=== PATIENT | male | born 1965 | race Caucasian/White ===

== ENCOUNTER → 2018-08-29 09:47 | Outpatient (CLI) | payer BC, SELFPAY ==
--- NOTE | 2018-08-29 09:50 | RAD_ITS ---
STUDY: X-RAY - RIGHT SHOULDER REASON FOR EXAM: Male, 52 years old. Neck and shoulder pain. TECHNIQUE: 4 view(s) of the shoulder. COMPARISON: None. FINDINGS: Normal glenohumeral articulation. Minimal osteophytes inferior aspect of the acromioclavicular joint. Normal acromion. Normal humeral head and visualized proximal humerus. The soft tissue structures are unremarkable. Normal visualized pulmonary apex. RAD/Shoulder min 2 Views IMPRESSION: Mild degenerative changes of the right shoulder. Electronically Signed: Francis Murrieta MD at 2:04 EST , Service support ,
--- NOTE | 2018-08-29 09:51 | RAD_ITS ---
STUDY: X-RAY - CERVICAL SPINE REASON FOR EXAM: Male, 52 years old. Neck and right shoulder pain. TECHNIQUE: 5 view(s) of the cervical spine were obtained. COMPARISON: July 25, 2015. FINDINGS: Normal anterior atlantoaxial articulation. Normal odontoid process. Normal cervical lordosis. Mild loss of vertebral body height at C6 unchanged. Mild disc space narrowing C6-7 and C7-T1. Neural foramina narrowing on the right at C5-6, C6-7 and on the left at C6-7. The soft tissue structures are unremarkable. RAD/Cerv Spine 4 or 5 Views IMPRESSION: Degenerative changes of the lower cervical spine with increased neuroforamina narrowing since the prior study. Electronically Signed: Francis Murrieta MD at 2:03 EST , Service support ,
--- OUTSIDE RECORDS SUMMARY | 2018-10-31 19:52 | XMS RPT_ITS ---
:1965 Author Organization OHIP Care Team Providers Name Role Phone Sarah Garcia DO Attending Unavailable Chantel Rivas MD Referring Unavailable Sarah Garcia DO Consulting Unavailable Suni Witt INTERIOR DESIGNER-C Attending Unavailable Suni Witt Referring Unavailable Chantel Rivas Primary Care Unavailable Suni Witt Attending Unavailable Suni Witt Referring Unavailable Chantel Rivas Primary Care Unavailable PROBLEMS PROBLEMS DATE TYPE CONDITION / CODE ATTENDING STATUS SOURCE 08/29/2018 Unknown M25.511 - Pain in Suni Witt Active [place] right shoulder / INTERIOR DESIGNER-C [facility] M25.511(ICD-10) Hospital Repository 08/29/2018 Unknown M54.2 - Suni Witt Active [place] Cervicalgia / INTERIOR DESIGNER-C [facility] M54.2(ICD-10) Hospital Repository PROCEDURES PROCEDURES No Procedure Records FoundRESULTS RESULTS CERV SPINE 4 OR 5 Observed: 08/29/2018 Status: F [facility] Imaging Services [address] [place] [address] Cerv Spine 4 or 5 Views MR#: [id number] Acct: [id number] Name: RODRICK ESCOBAR R Rep #: [id number] : 1965 M 52 From: Francis Murrieta PCP: Chantel Rivas MD Status: REG CLI Study: Cerv Spine 4 or 5 Views Date of Exam: 08/29/18 Exam# [id number] Ordering Dr: Suni Witt STUDY: X-RAY - CERVICAL SPINE REASON FOR EXAM: Male, 52 years old. Neck and right shoulder pain. TECHNIQUE: 5 view(s) of the cervical spine were obtained. COMPARISON: July 25, 2015. FINDINGS: Normal anterior atlantoaxial articulation. Normal odontoid process. Normal cervical lordosis. Mild loss of vertebral body height at C6 unchanged. Mild disc space narrowing C6-7 and C7-T1. Neural foramina narrowing on the right at C5-6, C6-7 and on the left at C6- 7. The soft tissue structures are unremarkable. RAD/Cerv Spine 4 or 5 Views IMPRESSION: Degenerative changes of the lower cervical spine with increased neuroforamina narrowing since the prior study. Electronically Signed: Francis Murrieta MD at 2:03 EST , Service support , CC: INTERIOR DESIGNERSoco Witt; Chantel Rivas MD Turbo Operator: Signed SHOULDER MIN 2 VIEWS Observed: 08/29/2018 Status: F Source: [place] 9:51 AM [facility] Imaging Services [address] [place] [address] Shoulder min 2 Views MR#: [id number] Acct: [id number] Name: RODRICK ESCOBAR Rep #: [id number] : 1965 M 52 From: Francis Murrieta PCP: Chantel Rivas MD Status: REG CLI Study: Shoulder min 2 Views Date of Exam: 08/29/18 Exam# [id number] Ordering Dr: Suni Witt STUDY: X-RAY - RIGHT SHOULDER REASON FOR EXAM: Male, 52 years old. Neck and shoulder pain. TECHNIQUE: 4 view(s) of the shoulder. COMPARISON: None. FINDINGS: Normal glenohumeral articulation. Minimal osteophytes inferior aspect of the acromioclavicular joint. Normal acromion. Normal humeral head and visualized proximal humerus. The soft tissue structures are unremarkable. Normal visualized pulmonary apex. RAD/Shoulder min 2 Views IMPRESSION: Mild degenerative changes of the right shoulder. Electronically Signed: Francis Murrieta MD at 2:04 EST , Service support , CC: ZANDER Witt; Chantel Rivas MD Turbo Operator: Signed ALLERGIES ALLERGIES No Allergies Records FoundENCOUNTERS ENCOUNTERS ADMIT/DISCHARGE ACCOUNT ADMITTING ENCOUNTER LOCATION SOURCE NUMBER CLASS 08/29/2018 [id number] Ambulatory [facility] ing:HPRAD Repository 08/29/2018 [id number] Ambulatory Building:[facility] Practices Repository 08/29/2018 [id number] Ambulatory [facility] ing:RAD.FUTUR Repository E PAYERS PAYERS ENCOUNTER GUARANTOR PAYER SUBSCRIBER SOURCE 08/29/2018 RODRICK Thomas Primary RODRICK [id number] Insurance:ANTHEMPolic SANDERSDOB: [facility] y [place]: [id number] [id number] Repository [address]Cft: 330 Date:[phone] () [id number], [place] [address]OE: 08/29/2018 Secondary NOT GIVENUNK [place] Insurance:SELF PAY [facility] Number: Effective Repository Date:2018-08-29 08/29/2018 Rodrick R Primary Rodrick R OHIP Practices SandersDOB: Insurance:[place] SandersDOB: Repository BC/BSPolicy Number: [id number] [facility] [id number] 0 [place], [place] Date:[id number] [place], [place] [address]Jml: (330) Name:[facility] [address] [address]Lnt: [address] [place] [address] [place] [phone] (HP) (HP)Tel: [phone]: [phone] 08/29/2018 Secondary Rodrick R OHIP Practices Insurance:[place] SandersDOB: [facility]: [id number] 0 [facility] Date: - [place], [place] [id number]: Name:[facility] Box ~(3 [phone], [place] 30 (HP) [id number]: 08/29/2018 RODRICK R Primary RODRICK R Gloria [id number] Insurance:ANTHEMPolic SANDERSDOB: [place] y Number: [id number], [place] [id number] Repository [address]Dfc: 330) Date:2100-46-04DL [phone] (HP) [id number], [place] [address]HS: 08/29/2018 Secondary NOT GIVENUNK [place] Insurance:SELF PAY [facility] Number: Effective Repository Date:2018-08-29
--- OUTSIDE RECORDS SUMMARY | 2018-10-31 19:52 | XMS RPT_ITS | Continuity of Care Document ---
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 Indication: Neck pain, acute Neck pain, acute : Patient Instructions Indication: Neck pain, acute Urinary frequency : Patient Instructions Indication: Urinary frequency SOB (shortness of breath) : Patient Instructions Indication: SOB (shortness of breath) GERD (gastroesophageal reflux disease) : How to access health information online Indication: GERD (gastroesophageal reflux disease) GERD (gastroesophageal reflux disease) : How to access health information online - Detail Indication: GERD (gastroesophageal reflux disease) GERD (gastroesophageal reflux disease) : Patient Instructions Indication: GERD (gastroesophageal reflux disease) SI joint arthritis : Patient Instructions Indication: SI joint arthritis Encounters Office Visit On: 29-Aug-2018 9:14 Encounter Reason: Shoulder Problem - The injury involved the right shoulder. Note for Shoulder problem: Symptoms started about 1 month ago with right shoulder pain- thinks was playing basketball and injured it or from End: 29-Aug-2018 14:37 [address] door. Right shoulder is very stiff and every day is a nagging pain. No numbness or tingling radiating down arm. Neck pain x 1 day and nothing now. Has tried OTC pain relief and heat an d ice therapy-helps for a little bit and then wears off.Encounter Diagnosis: Nonsmoker, Body mass index 28.0-28.9, adult, Right shoulder injury, Right shoulder pain, Neck pain [facility] Office Visit On: 04-Jun-2016 14:51 Encounter Diagnosis: Encounter for screening for malignant neoplasm of colon (Renamed from Special screening for malignant neoplasms, colon) End: 04-Jun-2016 14:53 [facility] Office Visit On: 20-May-2016 12:52 Encounter Reason: Follow up for chronic medical issues - The patient does not feel well, has good energy level and is sleeping well. Patient has been compliant with instructions. Current medication use: no side effects a End: 20-May-2016 13:51 nd compliant with dosing regimen. Patient sleeps 8 hours per night. Nutrition: balanced diet and supplemental vitamins. The medical issues the patient is following up for include All identified problems below, gastric reflux and high cholesterol. weight :.Encounter Diagnosis: GERD (gastroesophageal reflux disease), Hyperlipidemia, Encounter for screening for malignant neoplasm of prostate (Renamed from Screening for prostate cancer), Encounter for screening for malignant neoplasm of colon (Renamed from Special screening for malignant neoplasms, colon), Body mass index 28.0-28.9, adult, Nonsmoker [facility] Phone Encounter On: 31-Jul-2015 12:49 Encounter Diagnosis: Unspecified Diagnosis End: 31-Jul-2015 12:50 [facility] Phone Encounter On: 31-Jul-2015 10:26 Encounter Diagnosis: Dextroscoliosis End: 31-Jul-2015 10:31 [facility] Office Visit On: 25-Jul-2015 12:36 Encounter Reason: Neck Pain - The injury occurred 1 day(s) ago.Encounter Diagnosis: Neck pain, acute End: 25-Jul-2015 15:11 [facility] Phone Encounter On: 04-Jun-2015 15:03 Encounter Diagnosis: Urinary frequency End: 04-Jun-2015 15:05 [facility] Office Visit On: 03-Jun-2015 16:10 Encounter Reason: Urinary Frequency - Symptoms include urinary frequency and urinary urgency, while symptoms do not include urinary incontinence, dysuria or hematuria. Onset was sudden day(s) ago. The symptoms occur cons End: 03-Jun-2015 22:50 tantly. The patient describes this as improving. Associated symptoms include suprapubic pain, while associated symptoms do not include fever, chills, nausea, vomiting, diarrhea, back pain or flank pain. The patient is not currently being treated for this problem. Note for Urinary frequency: noticed wednesday urgency and frequency - and so this weekend drank a bunch of cranberry juice- was having some s uprapubic pressure - was better today unstil was messing around with gris at work- so stopped and got better- he was doing full thermos of coffee in am not whole day and hasnt since this weekend- didnt d rink alot of water either - started mountain biking more - no abd pain or flank pain- stream may not be as strong and no change in symoptioms at nightEncounter Diagnosis: Urinary Frequency (788.41), Suprapubic pressure [facility] Office Visit On: 13-Dec-2014 11:48 Encounter Reason: Upper Respiratory Infection (URI) - The last clinic visit was 5 day(s) ago. No changes in management were made at the last visit. Symptoms include nasal congestion, runny nose, productive cough and whee End: 13-Dec-2014 12:40 zing. Onset was sudden. The symptoms occur constantly. The patient describes this as moderate in severity and worsening. Symptoms are relieved by non- prescription cold medication. Associated symptoms in clude shortness of breath. Current treatment includes non-prescription cold medication.Encounter Diagnosis: SOB (shortness of breath), Cough, Walking pneumonia, SINUSITIS, ACUTE NOS (461.9), Onchomycosis (110.1) [facility] Office Visit On: 14-Nov-2014 15:21 Encounter Reason: Flu Like Symptoms - The last clinic visit was 1 day(s) ago. Symptoms include body aches, nasal congestion, runny nose, sore throat and dry cough. Onset was sudden 1 day(s) ago. Onset followed exposure a End: 14-Nov-2014 15:44 t home to someone with upper respiratory symptoms (work). The symptoms occur constantly. The episodes occur daily and last for 1 day. The patient describes this as moderate in severity and worsening. Th e patient is not currently being treated for this problem. By report there is good compliance with treatment. Previous presentation included sneezing, nasal congestion, runny nose, sore throat and dry cough.Encounter Diagnosis: Flu-like symptoms [facility] Office Visit On: 07-Aug-2014 15:24 Encounter Reason: Sinusitis/ - The duration of the symptoms are 1 1/2 weeks The course has been worsening. The sinusitis/ has no relieving factors. Associated features include The symptoms have been associated with nasal End: 07-Aug-2014 16:12 discharge/stuffy nose and sinus pain. No previous evaluations were reported.Encounter Diagnosis: Common cold virus, Cough [facility] Office Visit On: 30-Apr-2014 16:42 Encounter Reason: Follow up for chronic medical issues - The patient feels well with no complaints, has good energy level and is sleeping well. Patient has been compliant with instructions. Current medication use: no maykel End: 30-Apr-2014 17:12 e effects, compliant with dosing regimen and considered effective by patient. Patient sleeps 7 hours per night. Impact of disease: emotional impact-mild. Nutrition: balanced diet and supplemental vitami ns. The medical issues the patient is following up for include gastric reflux.Encounter Diagnosis: GERD (530.81), Hyperlipidemia (272.4), Well Male Exam (V70.0), Overweight (278.02), Onchomycosis (110.1) [facility] Office Visit On: 07-Oct-2012 8:09 Encounter Reason: Back Pain - This condition occurred without any known injury. The injury involved the lower back. This occurred 3 day(s) ago. The last clinic visit was 3 day(s) ago. No changes in management were made a End: 07-Oct-2012 8:42 t the last visit. Symptoms include back pain, spasm and stiffness. Symptoms are located in the right lower back. The patient describes the pain as aching. The symptoms occur constantly. The patient desc ribes symptoms as moderate in severity and unchanged. This problem has not been previously treated. Note for Back pain: poor bed at hotel and it flared Encounter Diagnosis: SI joint arthritis (720.2), Stiffness of joint, site (719.50) [facility] Phone Encounter On: 11-Aug-2012 14:44 Encounter Diagnosis: BRONCHITIS NOS (490.) End: 11-Aug-2012 14:46 [facility] Office Visit On: 04-Aug-2012 10:36 Encounter Reason: Flu Like Symptoms - Symptoms include fever, chills, body aches (mild ), postnasal drainage and dry cough, while symptoms do not include runny nose, scratchy throat, sore throat, facial pressure or facia End: 04-Aug-2012 11:50 l pain. Onset was sudden 1 day(s) ago. Onset followed exposure at home to someone with upper respiratory symptoms and exposure to an illness known to be in the community. The symptoms occur constantly. The patient describes this as moderate in severity and worsening. Associated symptoms include fatigue and fever, while associated symptoms do not include ear pain, wheezing, shortness of breath, weaknes s, nausea, vomiting or diarrhea. The patient is not currently being treated for this problem. Risk factors do not include smoking.Encounter Diagnosis: Fever chills (780.60), BRONCHITIS NOS (490.) [facility] Office Visit On: 22-Dec-2011 15:43 Encounter Reason: Follow up for chronic medical issues - The patient feels well with no complaints, has good energy level and is sleeping well. Patient has been compliant with instructions. Current medication use: no maykel End: 22-Dec-2011 16:34 e effects, compliant with dosing regimen and considered effective by patient. Patient sleeps 7 hours per night. Impact of disease: emotional impact-mild. Nutrition: balanced diet and supplemental vitami ns. The medical issues the patient is following up for include gastric reflux.Encounter Diagnosis: GERD (530.81), Hyperlipidemia (272.4), Well Male Exam (V70.0), Overweight (278.02) [facility] Office Visit On: 23-Oct-2010 9:45 Encounter Reason: Cough - The onset of the cough has been sudden and has been occurring in a persistent pattern for 4 days. The course has been constant. The cough is characterized as productive of mucoid sputum. The darron End: 23-Oct-2010 11:05 unt of sputum produced is scanty. The cough occurs all the time. The symptoms are aggravated by supine posture and particular position, but not by meals. The symptoms have been associated with chest dheeraj n, fever, headache, hoarseness and wheezing, while the symptoms have not been associated with runny nose or sore throat.Encounter Diagnosis: BRONCHITIS NOS (490.), Abnormal Lung Sounds/Rales (786.7) [facility] Phone Encounter On: 19-May-2010 14:36 Encounter Diagnosis: Unspecified Diagnosis End: 19-May-2010 14:37 [facility] Office Visit On: 11-Feb-2010 15:24 Encounter Reason: Follow up acute care visit - The patient feeling better since last seen and improving. Patient has been compliant with instructions. Current medication use: experiencing side effects (amitriptyline caus End: 11-Feb-2010 15:49 ed stomach upset). Patient sleeps 6 hours per night. Impact of disease: emotional impact-mild. Nutrition: balanced diet and supplemental vitamins. The medical issues the patient is following up for include other (headache). Encounter Diagnosis: Headache (784.0) [facility] Office Visit On: 20-Jan-2010 14:29 Encounter Reason: Headache/ - The onset of the headache/ has been sudden and has been occurring in an intermittent pattern for 1 weeks. The course has been constant and increasing in severity. The headache/ is characteri End: 20-Jan-2010 14:51 zed as a dull ache and severe. The headache/ is experienced any time of the day (no diurnal variation). The headache/ is described as being located in the right side (top and inside.). The symptoms have been associated with ear pain (right ear). The headache/ is relieved by sleep. 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 General health: feels well with minor complaints and has decreased energy level (patient works third shift). The patient's appetite is nor End: 09-Dec-2009 16:05 mal. Nutrition: normal/adequate. Exercises 0 days per week. Sleeps on average 6 hours per night. Normal bowel and bladder habits. Safety measures include appropriate use of safety belts and home smoke d etectors. There are no current emotional problems. The patient's libido is normal. Preventative measures done by patient are screening, colonoscopy (approx. [address] Wang) and screening, visual acuity (wears glasses and or contacts 2009 [facility]). Encounter Diagnosis: Headache (784.0), GERD (530.81), Overweight (278.02), Goiter (240.9), Well Male Exam (V70.0) [facility] Payers Shan EDOUARD/Yvan Hall; a guarantor
== END ==
PROVIDERS: Family Provider Internal Medicine; PCP Internal Medicine; Referring Provider Nurse Practitioner Gerontology; Visit Provider Nurse Practitioner Gerontology
DX: M25.511 Pain in right shoulder (principal); M54.2 Cervicalgia
CPT/HCPCS: 72050; 73030

== ENCOUNTER → 2019-07-29 08:46 | Outpatient (CLI) | payer BC, SELFPAY ==
[2019-07-29 09:26] LABS: Absolute Lymphocyte Count 1.39 X10^3/uL (0.83-4.51); Absolute Neutrophil Count 3.1 X10^3/uL (2.0-7.7); Basophil# 0.04 X10^3/uL; Basophil% 0.8 % (0-1); Eosinophil# 0.19 X10^3/uL; Eosinophils% 3.6 % (0-5); Hematocrit 47.1 % (40-54); Hemoglobin 15.6 g/dL (13.0-16.5); Lymphocyte # 1.39 X10^3/ul (4.0); Lymphocyte % 26.4 % (19-41); Mean Corp Hgb Conc 33.1 g/dL (32-36); Mean Corpuscular Hgb 29.7 pg (27.0-32.0); Mean Corpuscular Volume 89.7 fL (80-94); Mean Platelet Vol. 10.3 fl (6.2-12.0); Monocyte# 0.52 X10^3/uL; Monocyte% 9.9 % (0-10); NRBC Flagged by Analyzer 0 % (0-5); Neutrophil % 58.9 % (47-70); Platelet Count 274 K/mm3 (150-450); RBC Distribution Width SD 39.4 fl (35.1-43.9); Red Blood Count 5.25 M/mm3 (4.6-6.2); White Blood Count 5.3 K/mm3 (4.4-11.0)
[2019-07-29 10:07] LABS: ALB/GLOB Ratio 1.3 RATIO (0.9-2.4); AST(SGOT) 24 U/L (15-37); Alanine Aminotransfer ALT/SGPT 46 U/L (16-61); Albumin, Serum 4.1 g/dL (3.2-5.0); Alkaline Phosphatase 87 U/L (45-117); Anion Gap 3 (5-15); BUN 15 mg/dL (7-18); BUN/Creat Ratio 14.4 RATIO (10-20); Calcium,Total 9.4 mg/dL (8.5-10.1); Chloride 110 mmol/L (98-107); Creatinine, Serum 1.04 mg/dL (0.70-1.30); EST Glomerular Filtration Rate 79 mL/min (>60); Est Glom Filt Rate - Afr Amer 96 mL/min (>60); Free T3 2.9 pg/mL (2.18-3.98); Globulin 3.1 g/dL (2.2-4.2); Glucose 95 mg/dL (74-106); Potassium 4.2 mmol/L (3.5-5.1); Protein, Total 7.2 g/dL (6.4-8.2); Sodium Level 141 mmol/L (136-145); T4 Free Direct 0.92 ng/dL (0.76-1.46); Thyroid Stim Hormone (TSH) 1.02 uIU/mL (0.358-3.74)
[2019-07-31 12:07] LABS: CHOLESTEROL TOTAL 235 mg/dL (100-199); HDL-C 40 mg/dL (>39); HDL-P TOTAL 23.1 umol/L (>=30.5); SMALL LDL-P 354 nmol/L (<=527); TRIGLYCERIDES 111 mg/dL (0-149)
[2019-07-31 12:52] LABS: INSULIN RESISTANCE SCORE 53 (<=45); LDL SIZE 21.7 nm (>20.5); LDL-C 173 mg/dL (0-99); LDL-P 1588 nmol/L (<1000)
== END ==
PROVIDERS: Family Provider Internal Medicine; PCP Internal Medicine; Referring Provider Internal Medicine; Visit Provider Internal Medicine
DX: E78.5 Hyperlipidemia, unspecified (principal); E04.9 Nontoxic goiter, unspecified
CPT/HCPCS: 36415; 80053; 80061; 83704; 84439; 84443; 84481; 85025

== ENCOUNTER 2019-12-10 13:18 | Emergency (ER) | payer BC, SELFPAY ==
[2019-12-10 13:19] VITALS: BP 149/93; PULSE 103; RESP 18; TEMP 36.9; O2SAT 99; BMI 30.5
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
[2019-12-10] MEDS: HYDROcodone Bitartrate/Apap 5/325 Tablet PO (13:52)
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
[2019-12-10] MEDS: Diphth,Pertuss(Acell),Tet Vac 0.5 ML Vial IM (14:14)
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
[2019-12-10 15:43] VITALS: RESP 18
== END 2019-12-10 15:44 | disposition home or self-care (01) ==
PROVIDERS: Emergency Provider Emergency Medicine; PCP Internal Medicine
DX: S81.002A Unspecified open wound, left knee, initial encounter (principal); S81.001A Unspecified open wound, right knee, initial encounter; S51.802A Unspecified open wound of left forearm, initial encounter; S51.801A Unspecified open wound of right forearm, initial encounter; S91.302A Unspecified open wound, left foot, initial encounter; S91.301A Unspecified open wound, right foot, initial encounter; Z04.1 Encounter for examination and observation following transport accident; Z23 Encounter for immunization; V28.4XXA Motorcycle driver injured in noncollision transport accident in traffic accident, initial encounter; Y93.9 Activity, unspecified; Y92.9 Unspecified place or not applicable; Y99.9 Unspecified external cause status; M19.011 Primary osteoarthritis, right shoulder; M19.072 Primary osteoarthritis, left ankle and foot; Z88.5 Allergy status to narcotic agent
CPT/HCPCS: 73030; 73110; 73630; 90471; 90715; 99285

== ENCOUNTER → 2023-06-23 | Outpatient (CLI) | payer OTHER, SELFPAY ==
[2023-06-23 12:30] LABS: D-Dimer Quantitative (DVT/PE) 0.28 FEU/ug/m (0.27-0.49)
[2023-06-23 12:37] LABS: CRP < 2.90 mg/L (0.0-3.0); Troponin-I HS 7 pg/mL (3.0-78.0)
== END | disposition home or self-care (01) ==
PROVIDERS: PCP Internal Medicine; Referring Provider Nurse Practitioner Family; Visit Provider Nurse Practitioner Family
DX: R07.89 Other chest pain (principal)
CPT/HCPCS: 84484; 85379; 86140

== ENCOUNTER 2023-10-05 17:50 | Emergency (ER) | payer OTHER, SELFPAY ==
[2023-10-05 17:51] VITALS: BP 133/101; PULSE 86; RESP 16; TEMP 36.3; O2SAT 100; BMI 29.1
[2023-10-05 18:18] LABS: Bedside Glucose 88 mg/dL (74-106)
--- NOTE | 2023-10-05 18:37 | EKG12_ITS ---
Test Reason : DIZZY Blood Pressure : / mmHG Vent. Rate : 082 BPM Atrial Rate : 082 BPM P-R Int : 150 ms QRS Dur : 076 ms QT Int : 376 ms P-R-T Axes : 033 024 056 degrees QTc Int : 439 ms Normal sinus rhythm Normal ECG Confirmed by JAMES APONTE, NOE ([id number]), managing editor NOEMI MERLOS ([id number]) on 10/11/2023 10:11:17 AM Referred By: SALUD/KAT Confirmed By:SOFIYA RAMIREZ MD
--- NOTE | 2023-10-05 18:39 | EDS_ITS ---
HPI History of Present Illness Chief Complaint: Syncope Detail of Chief Complaint: Near syncope Informant: patient Narrative Narrative: Patient presents with 2 episodes today where he felt a warm head krause and generalized weakness. He states the first episode occurred as he was coming into his home. He felt a warm sensation across his trunk and over his head. He does not remember having palpitations. He likens it to getting a shot of Demerol and having that warm flushed sensation over take your body. He states he sat down and within seconds it seemed to resolve. He went to his PCPs office where they checked his vital signs and they were found to be unremarkable. He made an appointment to be seen on and have blood work obtained, but while getting ready to leave the office had a second similar episode. He states staff ember sat him down and checked his vital signs at the time and they seem to be unchanged. At this time he states he feels just a little bit off, but has difficulty describing it. Patient does admit to some increased stress recently with some court proceedings, but feels that he has been handling it well. He does not feel that he is anxious. He has not had significant change in caffeine intake. [facility] Medical History (Updated 10/05/23 @ 21:[address] Willow Cohen MD) Biceps tendon rupture Hx of gastroesophageal reflux (GERD) Radius distal fracture Home Medications naproxen 500 mg tablet 500 mg PO BID PRN #20 tabs 12/10/19 [Rx Last Taken Unknown] pantoprazole 40 mg tablet,delayed release 40 mg PO DAILY 12/10/19 [History Last Taken Unknown] Allergy/AdvReac Type Severity Reaction Status Date / Time meperidine [From Demerol] Allergy Nausea Verified 10/05/23 17:53 Social History Smoking Status: Never smoker alcohol intake: never ROS ROS ED Constitutional Constitutional ED: Denies chills or fever(s) Eyes Eyes: Denies discharge from eye(s) ENT ENT ED: Denies discharge from eye(s), rhinorrhea or sore throat Cardiovascular Cardiovascular: Denies chest pain or palpitations Respiratory/Chest Respiratory/Chest: Denies cough or dyspnea Gastrointestinal Gastrointestinal: Denies abdominal pain, nausea or vomiting Genitourinary Genitourinary ED: Denies difficulty urinating or dysuria Musculoskeletal Musculoskeletal: Denies back pain or extremity pain Integumentary Denies Abrasions or rash Neurologic Neurologic: Denies headache(s) or weakness Psychiatric Psychiatric: Denies anxiety or depression Allergic/Immunologic Allergic/Immunologic ED: Denies lip swelling or urticaria EXAM Physical Exam Const Vital Signs: 10/05/23 17:51 10/05/23 18:07 10/05/23 20:00 Temperature 97.4 F L Temperature Source Temporal Pulse Rate 86 70 Respiratory Rate 16 16 Respiratory Effort Normal Non-Labored Respiratory Pattern Normal Blood Pressure 133/101 H 140/91 H Blood Pressure Mean 111 107 Pulse Ox 100 Oxygen Delivery Method Room Air Positive well nourished and well developed General Appearance ED: well developed HEENT Reports moist mucous membranes Eyes EOMs intact bilaterally Chest Wall inspection of chest normal and palpation of chest normal Resp normal respiratory effort and clear to auscultation bilaterally Cardio regular rate and regular rhythm GI non-tender Palpation: soft Extremity normal to inspection Neuro oriented x3 and no sensory deficits noted Motor Exam: strength 5/5 throughout Psych mental status grossly normal Skin no rashes or lesions noted MDM MDM MDM Narrative Medical decision making narrative: Patient placed on cardiac sonographer. EKG obtained to evaluate for cardiac arrhythmia/ischemia. Chest x-ray obtained to evaluate for acute lung pathology, cardiac size, or mediastinal abnormality. Labwork obtained to evaluate for leukocytosis, anemia, and electrolyte derangement. History & Record Review Discussion w/independent historian: Patient and Significant other Lab Data Attestation: I reviewed the patient's lab results. Labs: Laboratory Results - last 24 hr 10/05/23 10/05/23 17:59 18:46 WBC 8.0 RBC 4.88 Hgb 14.9 Hct 44.0 MCV 90.2 MCH 30.5 MCHC 33.9 RDW Std Deviation 38.6 RDW Coeff of Jamil 11.9 Plt Count 344 MPV 10.2 Immature Gran % (Auto) 0.300 Neut % (Auto) 74.0 H Lymph % (Auto) 18.0 L [place] % (Auto) 6.6 Eos % (Auto) 0.5 Baso % (Auto) 0.6 Absolute Neuts (auto) 5.9 Absolute Lymphs (auto) 1.44 Nucleated RBC % 0 Sodium 142 Potassium 4.0 Chloride 111 H Carbon Dioxide 27.0 Anion Gap 4 L BUN 8 Creatinine 1.00 Estim Creat Clear Calc 100.28 Est GFR (MDRD) Af Amer 99 Est GFR (MDRD) Non-Af 82 BUN/Creatinine Ratio 8.0 L Glucose 113 H Calcium 10.0 Troponin I High Sens 7 POC Glucose 88 Radiography Chest X-Ray - ED: 1 View, Read by ED Physician and - (Scoliosis with chronic changes. No focal infiltrate.) Diagnostic Testing: Clinical Impression(s) from Imaging Studies Chest X-Ray 10/05/23 18:52 IMPRESSION: No definite acute or significant abnormality seen. Electronically Signed: Evans Thompson MD at 19:32 EST , EKG Initial EKG: Attestation: I personally reviewed and interpreted this EKG as follows: Interpretation: Sinus Rhythm (Sinus at 82 with no acute ischemia.) Treatment and Re-Evaluation :: CBC reveals normal white count 8.0 with a hemoglobin of 14.9. Differential unremarkable. Chemistry studies are normal. Troponin is normal at 7. Portable chest x-ray per my interpretation reveals scoliosis with no focal infiltrate. Radiology interpretation reviewed and agrees. EKG is sinus rhythm with no ischemia. Patient has had no further episodes here. I did recommend he follow-up with his doctor on as planned. Reassurance provided. Return instructions given. Discharge Plan Triage Chief Complaint: Syncope ED Provider: Willow Cohen Dx/Rx/DC Orders Clinical Impression: Near syncope Instructions: ED Near-Fainting, Uncertain Cause Prescriptions: No Action pantoprazole 40 MG tablet 40 mg PO DAILY naproxen 500 MG tablet 500 mg PO BID PRN Qty: 20 0RF Primary Care Provider: Sarah Garcia Referrals: Sarah Garcia DO [Primary Care Provider] - [facility] appointment Disposition Disposition: Home, Self Care
--- NOTE | 2023-10-05 18:52 | RAD_ITS ---
STUDY: X-RAY CHEST REASON FOR EXAM: Male, 58 years old. cp TECHNIQUE: Single AP portable view of the chest. COMPARISON: 06/23/2023 FINDINGS: The lungs are clear and expanded. There is no demonstrated pleural abnormality. Normal size heart. Normal mediastinum and liberty. Normal visualized pulmonary arteries. Normal visualized aortic arch and descending thoracic aorta. There is a dextroscoliosis of the thoracic spine. Normal visualized ribs, clavicles, and shoulders. There is no demonstrated abnormality of the visualized soft tissue structures of the upper abdomen. RAD/Chest 1 View (Portable) IMPRESSION: No definite acute or significant abnormality seen. Electronically Signed: Evans Thompson MD at 19:32 EST ,
[2023-10-05 18:53] LABS: Absolute Lymphocyte Count 1.44 X10^3/uL (0.83-4.51); Absolute Neutrophil Count 5.9 X10^3/uL (2.0-7.7); Basophil# 0.05 X10^3/uL; Basophil% 0.6 % (0-1); Eosinophil# 0.04 X10^3/uL; Eosinophils% 0.5 % (0-5); Hemoglobin 14.9 g/dL (13.0-16.5); Lymphocyte # 1.44 X10^3/ul (0.83-4.51); Mean Corp Hgb Conc 33.9 g/dL (32-36); Mean Corpuscular Hgb 30.5 pg (27.0-32.0); Mean Corpuscular Volume 90.2 fL (80-94); Mean Platelet Vol. 10.2 fl (6.2-12.0); Monocyte# 0.53 X10^3/uL; Monocyte% 6.6 % (0-10); NRBC Flagged by Analyzer 0 % (0-5); Platelet Count 344 K/mm3 (150-450); RBC Distribution Width CV 11.9 % (11.6-14.6); RBC Distribution Width SD 38.6 fl (35.1-43.9); Red Blood Count 4.88 M/mm3 (4.6-6.2)
[2023-10-05] MEDS: 0.9% Normal Saline (1000mL) 1,000 ML 1000 ML IV (19:01)
[2023-10-05 19:11] LABS: Anion Gap 4 (5-15); BUN 8 mg/dL (7-18); Chloride 111 mmol/L (98-107); EST Glomerular Filtration Rate 82 mL/min (>60); Est Glom Filt Rate - Afr Amer 99 mL/min (>60); Estimated Creatinine Clearance 100.28 ml/min; Glucose 113 mg/dL (74-106); Sodium Level 142 mmol/L (136-145); Troponin-I HS 7 pg/mL (3.0-78.0)
[2023-10-05 20:00] VITALS: BP 140/91; PULSE 70; RESP 16
[2023-10-05 21:12] VITALS: BP 138/78; PULSE 72; RESP 22; TEMP 36.6; O2SAT 99
== END 2023-10-05 21:15 | disposition home or self-care (01) ==
PROVIDERS: Emergency Provider Emergency Medicine; PCP Internal Medicine; Visit Provider Emergency Medicine
DX: R55 Syncope and collapse (principal)
CPT/HCPCS: 71045; 80048; 82962; 84484; 85025; 93005; 96360; 99284; J7030; A4216

== ENCOUNTER → 2024-05-04 | Outpatient (CLI) | payer OTHER, SELFPAY ==
--- NOTE | 2024-05-04 10:08 | PCM.CR.HP2 ---
CR - History & Physical General Arrival date:: 05/04/24 Arrival time:: 10:09 Date of Referral:: 04/12/24 Date of CR Evaluation:: 05/04/24 Referring Physician: Dr. Ryan Primary Diagnosis: PCI History of Present Cardiac Event Onset Date PTCA or coronary stenting:: Yes (02/09/24 onset) Vessel: Ramus Medications Ambulatory Orders ?Medication ?Instructions ?Recorded naproxen 500 mg tablet 500 mg PO BID PRN #20 tabs 12/10/19 pantoprazole 40 mg tablet,delayed 40 mg PO DAILY 12/10/19 release Allergies Allergies meperidine (From Demerol) Allergy (Verified 10/05/23 17:53) Nausea Sleep Disorder Evaluation Hx of Sleep Apnea: No Do you snore loudly (louder than talking or can be heard through closed doors)?: Yes Do you often feel tired/ fatigued/ sleepy during daytime?: No Has anyone observed you stop breathing during sleep?: No History of Hypertension (for STOP score): No STOP Results: Negative Advanced Directives Advanced Directives Power of Bank Examiner: Yes Living Will: Yes Advance Directives Information Provided: No Advance Directives on File: No DNR Order?:: No Past Medical History Covid-19 Screening Physicial Symptoms Other Clinical Concerns Exposure Risk Pertinent Comorbidities Has a serious heart condition:: Yes Past Medical Illness Past Medical History (Updated 10/13/23 @ 00:02 by Background Daemon) Hx of gastroesophageal reflux (GERD) Z87.19 Radius distal fracture S52.509A Biceps tendon rupture S46.219A Social History Smoking History Smoking Status: Never smoker Hx Tobacco Use: No Hx Smoking Exposure: No Alcohol Use Alcohol Usage: Yes (socially) Substance Abuse Hx Substance Use: No Occupation Occupation (List type of work in comments):: Employed Hours worked per day:: 6 Hobbies, Recreation, Social Activities Hobbies: Other (music, biking) Recreational Activities: I am able to engage in all my recreational activities Social Environment Status Marital Status: Current Living Arrangements Living Environment:: Spouse Children How many children do you have?: 2 Do any of your children live nearby?: Yes Safety Do you feel safe in your surroundings?: Yes Assistance Do you need any assistance at home?: no Review of Systems Review of Systems Hints Review of Present Symptoms: Reports Appetite - Normal, Appetite - Special Diet and Sleep - Normal; Denies Shortness of Breath at Rest, Shortness of Breath with Exertion, PVD, Operative Discomfort, Angina, Wound Healing, Dizziness/Lightheadedness, Fatigue, Heart Arrhythmia/Irregularities or Sexual Changes Pain Is Patient Pain Free?: Yes Risk Factor Assessment Chief Complaint Chief Complaint: PCI Vital Signs Pulse Ox: 100 Blood Pressure: 137/86 Pulse Pulse Rate: 60 Hypertension Blood Pressure Sitting - Right Arm: 137/86 Obesity Height: 6 ft 1 in Weight:: 218 lb Weight in Pounds: 218.0 lbs Body Mass Index (BMI): 28.8 Nutritional Referral for Obesity: No Physical Inactivity Physical Inactivity: Reg Exercise 30 min/day Risk Stratification Risk Guidelines: Moderate Risk: Risk Factor for Smoking, Risk Factor for Diabetes, Risk Factor for Obesity, Risk Factor for Hypertension, Risk Factor for Sedentary Lifestyle and Risk Factor for Depression and Highest Risk: Risk Factor for Dyslipidemia For Smoking Smoking Risk Guidelines For Dyslipidemia Dyslipidemia Risk Guidelines For Diabetes Mellitus Diabetes Risk Guidelines For Obesity/Overweight Obesity/Overweight Risk Guidelines For Hypertension Hypertension Risk Guidelines For Sedentary Lifestyle Sedentary Lifestyle Risk Guidelines For Depression Depression Risk Guidelines Motivation Motivation to Participate On a scale of 1 to 10, how prepared are you to commit to attending program?: 10 What do you see as barriers to successfully being able to complete the program?: nothing What do you see as the benefits of succesfully completing the program? In other words, what do you hope to get out of participating in the program?: endurance Are there issues you are dealing with that will interfere with completing the program?: no Do you have a spouse or signficant other, family or friends who will help support you to complete the program?: yes
[2024-05-04 10:18] VITALS: BP 137/86; PULSE 60; O2SAT 100
--- NOTE | 2024-05-04 10:19 | PCM.CR.ITP ---
Diagnosis General Information Admitting Diagnosis: PCI Personal Learning Style:: Audio/Visual Barriers to Learning: No Barriers Stage of change r/t lifestyle modifications:: Contemplation Gave educational material for:: Treating Heart Disease, How The Heart Works, What it means to have Heart Disease, How Coronary Artery Disease is Diagnosed, Heart Procedures, What Heart Medications Do, Risk Factors & Modifications, Living an Active Life, Nutrition, Emotions & Heart Disease, Stress Management & Relaxation and Sleep Disorders & Heart Disease Education/Goals Cardiac Rehabilitation Goals Personal Goals: Initial Assessment: Improve energy level and Improve muscle strength and endurance Scale for measuring improvement of personal goals Diagnosis & Disease Process Outcomes/Goals: Pt IDs own risk factors & lifestyle modifications by Session 10, Verbalizes symptoms of angina & response by session 3., Pt independently manages and Other Additional Outcomes/Goals: Plan/Interventions: Assist Pt to ID & engage in lifestyle modification to reduce CVD risk, Instruct on individual risk factors, Review symptoms of angina & emergency actions, Review secondary diagnosis & identify educational needs. and Other see comment 30 day Reassessments:: Not Met 30 day Reassessments:: Not Met 30 day Reassessments:: Not Met 30 day Reassessments:: Not Met Final Reassessments:: Not Met Safety Referral to Physical Therapy: No Referral to [facility] Case Management: No Fall Risk Assessed:: Yes Assistive Devices:: None Exercise - Initial Assessment Visit Date of Eval: 05/04/24 (initial eval ) Mets: Pre-: >3 METS for 30 minutes by discharge, >5 METS for 30 minutes by discharge, >7 METS for 30 minutes by discharge and Unable to meet goal due to: (see comment below) Physician Prescribed Exercise Modalities: Treadmill, Rower, Suleiman Jensendyne AD-7, SciFit Stepper, SciFit Pro-II Ergometer and SciFit Lateral [place] Frequency: 3x/week for 12 weeks [36 sessions] Intensity: 60-80% of age predicted maximum heart rate reserve Duration: 30 - 45 minutes Current METSs:: 3 Target Heart Rate:: 97-122 Resting Blood Pressure: 137/86 EKG Type: SB Current Physical Activity or Exercising minutes: walking and biking Outcomes & Goals Goals:: Verbalizes understanding of THR, RPE & goal METS by session 6, Documents in home exercise log/reports 30 min aerobic 5 day/wk by DC, Demonstrates accurate pulse taking by DC and Other additional outcome/goals: see below Intervention & Plan Exercise Program Goals: Instruct on personal THR & RPE, Instruct on MET level & personal MET goal, Show patient to take own pulse /validate performance until accurate, Instruct on home exercise and Other additional plan/int Physical Activity Home Exercise Physical Activity - Home Exercise: Safe Exercise, Warm-up, Self-monitoring, Cool-Down, Home Exercise > 30 min Daily and Sitting Time <3 hours/daily Outcomes & Goals Outcomes/Goals: Demonstrates correct Warm-up/exercise Cool-Down (S3) if = 2.5 METs, Verbalizes symptoms of exercise intolerance by Session 3 (S3), Demonstrate safe equipment use (S3) & follows exercise prescrition (6) and Other: See below Intervention & Plan Plan/Intervention: Instruct warm-up & cool-down if exercising at > 2 METs, Instruct on symptoms of exercise intolerance & actions to take, Instruct & monitor on saf, Assess intial functional capacity & safety risk and Other See below Nutrition - Initial Assessment Program Goals Nutrition Program Goals Patient has diagnosis of Hyperlipidemia (ICD E78)?: Yes Visit Date of Eval: 05/04/24 (initial eval ) Cholesterol/Lipids (Other Core Measures) Determine presence & major risk factors that modify LDL goal: Hypertension or hypertensive medication, Low HDL cholesterol <40 mg/dL* and Family history of premature CHD in Male < 55 years: female <65 yearsFa Outcomes/Goals: Pt IDs own risk factors & lifestyle modifications by Session 10, Verbalizes symptoms of angina & response by session 3., Pt independently manages and Other Additional Outcomes/Goals: Intervention/Plan: Advocate for lipid panel cholesterol medication if applicable, Instruct on personal lipid levels & lipid goals/NCEP guidelines, Instruct on cholesterol and Other additional plan/int Referral to dietitian:: No (declines) Diabetes (Other Core Measures) Diabetes Type: Not Applicable Weight Mgt (Other Care) Height: 6 ft 1 in Weight:: 219 lb BMI: 28.8 Diagnosis Overweight/Obesity BMI> 30% ICD-10 E66: No Diagnosis High BMI/Morbid Obesity BMI> 35% ICD-10 Z68: No Outcomes/Goals: Pt sets, maintains & shows weight loss goal & trend during rehab and Other additional outcomes/goals Intervention/Plan: Instruct on ideal BMI & set weight loss goal w/patient, Assist pt to ID & incorporate diet changes for weight loss by S9, Refer to Structured Weight Loss program as appropriate, Encourage goal of using 250-300dcal per session for weight loss and Other additional plan/interventions Healthy Eating Habits Will attend diet classes:: Yes Outcomes/Goals:: Consume diet rich in vegs,fruits,whole grain/high fiber,fish,lean meat, Limit sat/trans fats,cholesterol & added salts & sugars and Other additional outcome/goals: Intervention/Plan:: Assess current eating habits and Other Additional plan/interventions Education Gave educational materials for:: Signs & symptoms of hypoglycemia, Signs & symptoms of hyperglycemia, Relate diabetes to coronary artery disease and Healthy eating Core - Initial Assessment Visit Date of Eval: 05/04/24 (initial eval ) Medication Compliance Preventative Medication(s):: Aspirin, Clopidogrel/P2Y12 inhibit, Statin/lipid and Beta zana H/O mental health issues: depression, anxiety, or addiction?: No Doesn?t believe in the benefits of treatment?: No Believes medications are unnecessary or harmful?: No Has a concern about medication side effects?: No Expresses concern over the cost of medications?: No Outcomes/Goals: Verbalizes medications,desired effect & common side effects @ DC, Pt self-reports following medication regimen, Keeps card in wallet w/medications listed by DC and Other additional outcome/goals: Interventions/plans: Instruct on medication effects & side effects, Review medication list w/patient every two weeks, Instruct importance of taking meds as ordered & assist problem solving and Other additional Tobacco Use Tobacco Use: Non-smoker Hypertension Resting Blood Pressure:: 137/86 [place] [employer] Hypertension Guidelines Outcomes/Goals: Able to verbalize/achieve optimal blood pressure <130/80, Incorporates diet changes & exercise for blood pressure control by DC and Other additional outcomes/goals Interventions/plan: Instruct on optimal blood pressure, hypertension & medications, Instruct on effects of sodium, alcohol, stress, exercise &hypertension and Other additional plan/interventions Tobacco Cessation Referral Smoking Cessation Referral:: No Individual Education/Counseling:: No Education Schedule Given:: Yes Psychosocial - Initial Assess VIsit Date of Eval: 05/04/24 (initial eval ) History of previous Mental disease:: No Target Goals Target Goals Psychosocial Test Tool Used:: Ferrans Power QOL Cardiac and PHQ-9 Questionnaire phq-9 Severity Referral to Behavioral Health PS - Interventions: Yes: Attend Stress Management Classes Outcomes/Goals: See list Psychosocial Outcomes/Goals:: ID's personal stressors & 2 strategies to manage stress by discharge and Other Additional outcome/goals: Intervention/Plan: See List Interventions/Plan:: Assess stressors,coping strategies & signs of derpression on admission, Instruct/assist pt to develop coping & personal stress Mgt strategies, Refer to Behavioral Health if appropriate, Refer to Physician if appropriate, Instruct patient to recognize signs & symptoms of depression, Instruct patient to recog and Other additional plan/intervention Patient Health Questionnaire PHQ-9 Screening Initial Assessment: 1. Little interest or pleasure in doing things: Not at all 2. Feeling down, depressed, or hopeless: Not at all 3. Trouble falling or staying asleep, or sleeping too much: Not at all 4. Feeling tired or having little energy: Not at all 5. Poor appetite or overeating: Not at all 6. Feeling bad about yourself -- or that you are a failure or have let yourself or your family down: Not at all 7. Trouble concentrating on things, such as reading the newspaper or watching television: Not at all 8. Moving or speaking so slowly that other people could have noticed. Or the opposite - being so fidgety or restless that you have been moving around a lot more than usual: Not at all 9. Thoughts that you would be better off , or of hurting yourself in some way: Not at all How difficult have these problems made it for you to do your work, take care of things at home, or get along with other people?: Not difficult at all Total Score: 0 [id number] SV Test Statements CAD is a disease of the arteries in the heart: False Examples of risk factors for heart disease: True Angina is chest pain or discomfort: True The benefits of resistance training include: True Eating more meat and dairy products: False Anti-platelet medications such as aspirin are important: True The only effective way to manage stress: False An exercise warm-up slowly increases heart rate: False Prepared, processed foods usually have high sodium: True Depression is common after a heart attack: True The statin medications lower cholesterol: True To control blood pressure, lower the amount of sodium: True If someone gets chest discomfort during walking: False Transfats are partially hydrogenated vegetable oils: True Sleep apnea that is not treated increases the risk: I Don't Know To control cholesterol, one should become a vegetarian: True Someone knows if he/she is exercising at the right level: True Diabetes cannot be prevented with exercise & health eating: False Stress is a large risk for heart attack: True A diet that can help lower blood pressure is rich in: True Total Score Total Correct Responses: 17 Self-Efficacy 6-Item Scale Initial Assessment: We would like to know how confident you are in doing certain activities. Please select your confidence level for: Fatigue Select Number: 10 Physical Discomfort or Pain Select Number: 10 Emotional Distress Select Number: 10 Other Symptoms or Health Problems Select Number: 10 Different Tasks and Activities Select Number: 10 Medication Select Number: 10 Total Score:: 10 Nutrition Survey Nutrition Survey Instructions Scoring Instructions Nutrition Survey Initial: Have you lost >10 lbs over the past 2 months without trying?: No Are you following a special diet at home for diabetes, low fat, or low salt?: Yes Are you interested in meeting with a dietitian for help understanding your diet?: No Do you eat less than 3 meals a day?: No Do you eat fatty meats (watson, sausage, ribs, etc), fried foods, desserts, large amounts of salad dressings, margarine, butter, or cheese most days?: No Do you have food allergies? [Enter types in comment field]: No Do you eat in restaurants more than 3 times a week?: No Do you season food with salt, seasoning salt, or garlic salt?: Yes Do you used canned, boxed, frozen meals, or soups, seasoning packets?: Yes Total Score:: 3 Exercise - 30-day Assessment Physician Prescribed Exercise Modalities: Treadmill, Rower, Schwinn Airdyne AD-7, SciFit Stepper, SciFit Pro-II Ergometer and SciFit Lateral [employer] Supervisor Exercise - 60-day Assessment Physician Prescribed Exercise Modalities: Treadmill, Rower, Schwinn Airdyne AD-7, SciFit Stepper, SciFit Pro-II Ergometer and SciFit Lateral [place] Exercise - 90-day Assessment Physician Prescribed Exercise Modalities: Treadmill, Rower, Schwinn Airdyne AD-7, SciFit Stepper, SciFit Pro-II Ergometer and SciFit Lateral Feed Inspection Supervisor Exercise - Final/Discharge Physician Prescribed Exercise Modalities: Treadmill, Rower, Schwinn Airdyne AD-7, SciFit Stepper, SciFit Pro-II Ergometer and SciFit Lateral [place] Frequency: 3x/week for 12 weeks [36 sessions] Intensity: 60-80% of age predicted maximum heart rate reserve Current METSs:: 3 Target Heart Rate:: 97-122 Nutrition - 30-Day Assessment Weight Mgt (Other Care) Height: 6 ft 1 in Weight:: 219 lb BMI: 28.8 Nutrition - 60-Day Assessment Weight Mgt (Other Care) Height: 6 ft 1 in Weight:: 219 lb BMI: 28.8 Core - Final Assessment Hypertension Resting Blood Pressure:: 137/86 [place] [employer] Hypertension Guidelines Core - 60-Day Assessment Hypertension Resting Blood Pressure:: 137/86 [place] [employer] Hypertension Guidelines Psychosocial - 30-Day Assess Target Goals Target Goals Referral to Behavioral Health PS - Interventions: Yes: Attend Stress Management Classes Psychosocial - 60-Day Assess Target Goals Target Goals Referral to Behavioral Health PS - Interventions: Yes: Attend Stress Management Classes Psychosocial - 90-Day Assess Target Goals Target Goals Referral to Behavioral Health PS - Interventions: Yes: Attend Stress Management Classes Psychosocial - Final Assessmen Target Goals Target Goals Referral to Behavioral Health PS - Interventions: Yes: Attend Stress Management Classes Nutrition - 90-Day Assessment Weight Mgt (Other Care) Height: 6 ft 1 in Weight:: 219 lb BMI: 28.8 Nutrition - Final Assessment Program Goals Patient has diagnosis of Hyperlipidemia (ICD E78)?: Yes Weight Mgt (Other Care) Height: 6 ft 1 in Weight:: 219 lb BMI: 28.8
[2024-05-04 10:29] VITALS: BMI 28.8
[2024-05-04 11:15] VITALS: BP 137/86; BMI 28.8
== END | disposition home or self-care (01) ==
PROVIDERS: PCP Internal Medicine
DX: Z95.5 Presence of coronary angioplasty implant and graft (principal)

== ENCOUNTER 2024-05-08 15:35 | Outpatient (RCR) | payer OTHER, SELFPAY ==
[2024-05-04 11:15] VITALS: BMI 28.8
== END 2024-05-08 23:59 ==
LOC: CR 15:35
PROVIDERS: PCP Internal Medicine
DX: Z95.5 Presence of coronary angioplasty implant and graft
CPT/HCPCS: 93798

== ENCOUNTER 2024-05-17 10:30 | Outpatient (RCR) | payer OTHER, SELFPAY | END 2024-05-17 19:00 | disposition home or self-care (01) | LOC: PT 10:30 | PROVIDERS: PCP Internal Medicine | DX: M75.31 Calcific tendinitis of right shoulder (principal); M25.511 Pain in right shoulder | CPT/HCPCS: 97110; 97161 ==

== ENCOUNTER 2024-05-31 11:15 | Outpatient (RCR) | payer OTHER, SELFPAY ==
[2024-05-04 11:15] VITALS: BMI 28.8
--- NOTE | 2024-06-02 07:11 | PCM.CR.ITP ---
Exercise - Initial Assessment Visit Session #:: 10 Physician Prescribed Exercise Modalities: Treadmill, Schwinn Airdyne AD-7 and SciFit Stepper Nutrition - Initial Assessment Weight Mgt (Other Care) Height: 6 ft 1 in Weight:: 226 lb BMI: 29.8 Psychosocial - Initial Assess Target Goals Target Goals Referral to Behavioral Health PS - Interventions: Yes: Attend Stress Management Classes Patient Health Questionnaire PHQ-9 Screening 30-Day Re-eval Assessment: 1. Little interest or pleasure in doing things: Not at all 2. Feeling down, depressed, or hopeless: Not at all 3. Trouble falling or staying asleep, or sleeping too much: Not at all 4. Feeling tired or having little energy: Not at all 5. Poor appetite or overeating: Not at all 6. Feeling bad about yourself -- or that you are a failure or have let yourself or your family down: Not at all 7. Trouble concentrating on things, such as reading the newspaper or watching television: Not at all 8. Moving or speaking so slowly that other people could have noticed. Or the opposite - being so fidgety or restless that you have been moving around a lot more than usual: Not at all 9. Thoughts that you would be better off , or of hurting yourself in some way: Not at all How difficult have these problems made it for you to do your work, take care of things at home, or get along with other people?: Not difficult at all Total Score: 0 Self-Efficacy 6-Item Scale 30-Day Re-eval Assessment: We would like to know how confident you are in doing certain activities. Please select your confidence level for: Fatigue Select Number: 10 Physical Discomfort or Pain Select Number: 10 Emotional Distress Select Number: 10 Other Symptoms or Health Problems Select Number: 10 Different Tasks and Activities Select Number: 10 Medication Select Number: 10 Total Score:: 10 Nutrition Survey Nutrition Survey Instructions Scoring Instructions Exercise - 30-day Assessment Visit Date of Eval: 06/02/24 Session #:: 10 Physician Prescribed Exercise Modalities: Treadmill, Schwinn Airdyne AD-7 and SciFit Stepper Frequency: 3x/week for 12 weeks [36 sessions] Intensity: 60-80% of age predicted maximum heart rate reserve Duration: 30 - 45 minutes Current METSs:: 5.7 Target Heart Rate:: 97-122 Current RPE:: 11-12.5 Maximum Excercise HR:: 129 Resting Blood Pressure: 122/82 Maximum Exercise Blood Pressure: 128/78 EKG Type: NSR to ST with rare PAC, PVC Outcomes & Goals Goals:: Verbalizes understanding of THR, RPE & goal METS by session 6, Documents in home exercise log/reports 30 min aerobic 5 day/wk by DC, Demonstrates accurate pulse taking by DC and Other additional outcome/goals: see below Intervention & Plan Exercise Program Goals: Instruct on personal THR & RPE, Instruct on MET level & personal MET goal, Show patient to take own pulse /validate performance until accurate, Instruct on home exercise and Other additional plan/int 30-day Reassessments 30 day Reassessments:: Progressing Reassessment Notes & Comments:: RPE explained. Pt is able to demonstrate understanding Physical Activity Home Exercise Physical Activity - Home Exercise: Safe Exercise, Warm-up, Self-monitoring, Cool-Down, Home Exercise > 30 min Daily and Sitting Time <3 hours/daily Outcomes & Goals Outcomes/Goals: Demonstrates correct Warm-up/exercise Cool-Down (S3) if = 2.5 METs, Verbalizes symptoms of exercise intolerance by Session 3 (S3), Demonstrate safe equipment use (S3) & follows exercise prescrition (6) and Other: See below Intervention & Plan Plan/Intervention: Instruct warm-up & cool-down if exercising at > 2 METs, Instruct on symptoms of exercise intolerance & actions to take, Instruct & monitor on saf, Assess intial functional capacity & safety risk and Other See below 30-day Reassessments 30 day Reassessments:: Progressing Reassessment Notes & Comments:: Slow warm up explained and demonstrated. Pt is able to return demonstration. Exercise - 60-day Assessment Physician Prescribed Exercise Modalities: Treadmill, Schwinn Airdyne AD-7 and SciFit Stepper Exercise - 90-day Assessment Physician Prescribed Exercise Modalities: Treadmill, Schwinn Airdyne AD-7 and SciFit Stepper Exercise - Final/Discharge Physician Prescribed Exercise Modalities: Treadmill, Schwinn Airdyne AD-7 and SciFit Stepper Nutrition - 30-Day Assessment Program Goals Nutrition Program Goals Patient has diagnosis of Hyperlipidemia (ICD E78)?: Yes Visit Date of Eval: 06/02/24 Session #:: 10 Cholesterol/Lipids (Other Core Measures) Determine presence & major risk factors that modify LDL goal: Hypertension or hypertensive medication, Low HDL cholesterol <40 mg/dL*, Family history of premature CHD in Male < 55 years: female <65 yearsFa and Age men > 45 years; women >/= 55 years Outcomes/Goals: Pt IDs own risk factors & lifestyle modifications by Session 10, Verbalizes symptoms of angina & response by session 3., Pt independently manages and Other Additional Outcomes/Goals: Intervention/Plan: Advocate for lipid panel cholesterol medication if applicable, Instruct on personal lipid levels & lipid goals/NCEP guidelines, Instruct on cholesterol and Other additional plan/int 30-day Reassessments:: Progressing Reassessment Notes & Comments:: risk factors explained, pt demonstrates understanding Diabetes (Other Core Measures) Diabetes Type: Not Applicable Weight Mgt (Other Care) Height: 6 ft 1 in Weight:: 226 lb BMI: 29.8 Diagnosis Overweight/Obesity BMI> 30% ICD-10 E66: No Diagnosis High BMI/Morbid Obesity BMI> 35% ICD-10 Z68: No Outcomes/Goals: Pt sets, maintains & shows weight loss goal & trend during rehab and Other additional outcomes/goals Intervention/Plan: Instruct on ideal BMI & set weight loss goal w/patient, Assist pt to ID & incorporate diet changes for weight loss by S9, Refer to Structured Weight Loss program as appropriate, Encourage goal of using 250-300dcal per session for weight loss and Other additional plan/interventions 30 day Reassessments:: Progressing Reassessment Notes & Comments:: Low sodium diet discussed in nutrition class. Healthy Eating Habits Will attend diet classes:: Yes Outcomes/Goals:: Consume diet rich in vegs,fruits,whole grain/high fiber,fish,lean meat, Limit sat/trans fats,cholesterol & added salts & sugars and Other additional outcome/goals: Intervention/Plan:: Assess current eating habits and Other Additional plan/interventions 30-day Reassessments:: Progressing Reassessment Notes & Comments:: Low sodium diet discussed in nutrition class. Will encourage pt to keep a food log. Education Gave educational materials for:: Signs & symptoms of hypoglycemia, Signs & symptoms of hyperglycemia, Relate diabetes to coronary artery disease and Healthy eating Nutrition - 60-Day Assessment Weight Mgt (Other Care) Height: 6 ft 1 in Weight:: 226 lb BMI: 29.8 Core - 30-Day Assessment Visit Date of Eval: 06/02/24 Session #:: 10 Medication Compliance Preventative Medication(s):: Aspirin, Clopidogrel/P2Y12 inhibit, Statin/lipid and Beta zana H/O mental health issues: depression, anxiety, or addiction?: No Doesn?t believe in the benefits of treatment?: No Believes medications are unnecessary or harmful?: No Has a concern about medication side effects?: No Expresses concern over the cost of medications?: No Outcomes/Goals: Verbalizes medications,desired effect & common side effects @ DC, Pt self-reports following medication regimen, Keeps card in wallet w/medications listed by DC and Other additional outcome/goals: Interventions/plans: Instruct on medication effects & side effects, Review medication list w/patient every two weeks, Instruct importance of taking meds as ordered & assist problem solving and Other additional 30-day Reassessments:: Progressing Reassessment Notes & Comments:: Importance of taking meds as prescribed explained. Pt demonstrates understanding Tobacco Use Tobacco Use: Non-smoker Hypertension Resting Blood Pressure:: 122/82 [place] [employer] Hypertension Guidelines Peak Exercise Blood Pressure:: 128/78 Outcomes/Goals: Able to verbalize/achieve optimal blood pressure <130/80, Incorporates diet changes & exercise for blood pressure control by DC and Other additional outcomes/goals Interventions/plan: Instruct on optimal blood pressure, hypertension & medications, Instruct on effects of sodium, alcohol, stress, exercise &hypertension and Other additional plan/interventions 30 day Reassessments:: Progressing Reassessment Notes & Comments:: Pt's BP's are slightly elevated at times. will continue to monitor and send report to physician is this continues. Low sodium diet encouraged. Tobacco Cessation Referral Smoking Cessation Referral:: No Individual Education/Counseling:: No Education Schedule Given:: Yes Psychosocial - 30-Day Assess VIsit Date of Eval: 06/02/24 Session #:: 10 History of previous Mental disease:: No Target Goals Target Goals Psychosocial Test Tool Used:: Ferrans Power QOL Cardiac and PHQ-9 Questionnaire phq-9 Severity Referral to Behavioral Health PS - Interventions: Yes: Attend Stress Management Classes Outcomes/Goals: See list Psychosocial Outcomes/Goals:: ID's personal stressors & 2 strategies to manage stress by discharge and Other Additional outcome/goals: Intervention/Plan: See List Interventions/Plan:: Assess stressors,coping strategies & signs of derpression on admission, Instruct/assist pt to develop coping & personal stress Mgt strategies, Refer to Behavioral Health if appropriate, Refer to Physician if appropriate, Instruct patient to recognize signs & symptoms of depression, Instruct patient to recog and Other additional plan/intervention 30-day Reassessments: 30 day Reassessments:: Met Reassessment Notes & Comments:: Pt denies any psychosocial issues at this time. Psychosocial - 60-Day Assess Target Goals Target Goals Referral to Behavioral Health PS - Interventions: Yes: Attend Stress Management Classes Outcomes/Goals: See list Psychosocial Outcomes/Goals:: ID's personal stressors & 2 strategies to manage stress by discharge and Other Additional outcome/goals: Psychosocial - 90-Day Assess Target Goals Target Goals Referral to Behavioral Health PS - Interventions: Yes: Attend Stress Management Classes Psychosocial - Final Assessmen Target Goals Target Goals Referral to Behavioral Health PS - Interventions: Yes: Attend Stress Management Classes Nutrition - 90-Day Assessment Weight Mgt (Other Care) Height: 6 ft 1 in Weight:: 226 lb BMI: 29.8 Nutrition - Final Assessment Weight Mgt (Other Care) Height: 6 ft 1 in Weight:: 226 lb BMI: 29.8
[2024-06-02 07:23] VITALS: BP 122/82; BMI 29.8
== END 2024-06-08 23:59 ==
LOC: CR 11:15
PROVIDERS: PCP Internal Medicine
DX: Z95.5 Presence of coronary angioplasty implant and graft (principal)
CPT/HCPCS: 93798

== ENCOUNTER 2024-06-26 11:15 | Outpatient (RCR) | payer OTHER, SELFPAY ==
[2024-06-09 00:47] VITALS: BP 122/82
--- NOTE | 2024-07-04 09:57 | CR.ITP_ITS ---
Exercise - Initial Assessment Physician Prescribed Exercise Modalities: Treadmill, Schwinn Airdyne AD-7 and SciFit Stepper Nutrition - Initial Assessment Weight Mgt (Other Care) Height: 6 ft 1 in Weight:: 226 lb BMI: 29.8 Core - Initial Assessment Hypertension Resting Blood Pressure:: 124/70 [place] [employer] Hypertension Guidelines Psychosocial - Initial Assess Target Goals Target Goals Referral to Behavioral Health PS - Interventions: Yes: Attend Stress Management Classes Patient Health Questionnaire PHQ-9 Screening 60-Day Re-eval Assessment: 1. Little interest or pleasure in doing things: Not at all 2. Feeling down, depressed, or hopeless: Not at all 3. Trouble falling or staying asleep, or sleeping too much: Not at all 4. Feeling tired or having little energy: Not at all 5. Poor appetite or overeating: Not at all 6. Feeling bad about yourself -- or that you are a failure or have let yourself or your family down: Not at all 7. Trouble concentrating on things, such as reading the newspaper or watching television: Not at all 8. Moving or speaking so slowly that other people could have noticed. Or the opposite - being so fidgety or restless that you have been moving around a lot more than usual: Not at all 9. Thoughts that you would be better off , or of hurting yourself in some way: Not at all How difficult have these problems made it for you to do your work, take care of things at home, or get along with other people?: Not difficult at all Total Score: 0 Self-Efficacy 6-Item Scale 60-Day Re-eval Assessment: We would like to know how confident you are in doing certain activities. Please select your confidence level for: Fatigue Select Number: 10 Physical Discomfort or Pain Select Number: 10 Emotional Distress Select Number: 10 Other Symptoms or Health Problems Select Number: 10 Different Tasks and Activities Select Number: 10 Medication Select Number: 10 Total Score:: 10 Nutrition Survey Nutrition Survey Instructions Scoring Instructions Exercise - 30-day Assessment Physician Prescribed Exercise Modalities: Treadmill, Schwinn Airdyne AD-7 and SciFit Stepper Exercise - 60-day Assessment Visit Date of Eval: 07/04/24 Session #:: 13 Physician Prescribed Exercise Modalities: Treadmill, Schwinn Airdyne AD-7 and SciFit Stepper Frequency: 3x/week for 12 weeks [36 sessions] Intensity: 60-80% of age predicted maximum heart rate reserve Duration: 30 - 45 minutes Current METSs:: 6.8 Target Heart Rate:: 97-130 Current RPE:: 13 Maximum Excercise HR:: 133 Resting Blood Pressure: 128/80 Maximum Exercise Blood Pressure: 180/98 EKG Type: NSR to ST with rare pvc Outcomes & Goals Goals:: Verbalizes understanding of THR, RPE & goal METS by session 6, Documents in home exercise log/reports 30 min aerobic 5 day/wk by DC, Demonstrates accurate pulse taking by DC and Other additional outcome/goals: see below Intervention & Plan Exercise Program Goals: Instruct on personal THR & RPE, Instruct on MET level & personal MET goal, Show patient to take own pulse /validate performance until accurate, Instruct on home exercise and Other additional plan/int 30-day Reassessments 30 day Reassessments:: Progressing Reassessment Notes & Comments:: Pt's MET level have been increased. Pt is able to tolerate well. Physical Activity Home Exercise Physical Activity - Home Exercise: Safe Exercise, Warm-up, Self-monitoring, Cool-Down, Home Exercise > 30 min Daily and Sitting Time <3 hours/daily Outcomes & Goals Outcomes/Goals: Demonstrates correct Warm-up/exercise Cool-Down (S3) if = 2.5 METs, Verbalizes symptoms of exercise intolerance by Session 3 (S3), Demonstrate safe equipment use (S3) & follows exercise prescrition (6) and Other: See below Intervention & Plan Plan/Intervention: Instruct warm-up & cool-down if exercising at > 2 METs, Instruct on symptoms of exercise intolerance & actions to take, Instruct & monitor on saf, Assess intial functional capacity & safety risk and Other See below 30-day Reassessments 30 day Reassessments:: Progressing Reassessment Notes & Comments:: Cool down demonstrated and encouraged. Pt is able to return demonstration Exercise - 90-day Assessment Physician Prescribed Exercise Modalities: Treadmill, Schwinn Airdyne AD-7 and SciFit Stepper Exercise - Final/Discharge Physician Prescribed Exercise Modalities: Treadmill, Schwinn Airdyne AD-7 and SciFit Stepper Nutrition - 30-Day Assessment Weight Mgt (Other Care) Height: 6 ft 1 in Weight:: 226 lb BMI: 29.8 Nutrition - 60-Day Assessment Program Goals Nutrition Program Goals Patient has diagnosis of Hyperlipidemia (ICD E78)?: Yes Visit Date of Eval: 07/04/24 Session #:: 13 Cholesterol/Lipids (Other Core Measures) Determine presence & major risk factors that modify LDL goal: Hypertension or hypertensive medication, Low HDL cholesterol <40 mg/dL*, Family history of premature CHD in Male < 55 years: female <65 yearsFa and Age men > 45 years; women >/= 55 years Outcomes/Goals: Pt IDs own risk factors & lifestyle modifications by Session 10, Verbalizes symptoms of angina & response by session 3., Pt independently manages and Other Additional Outcomes/Goals: Intervention/Plan: Advocate for lipid panel cholesterol medication if applicable, Instruct on personal lipid levels & lipid goals/NCEP guidelines, Instruct on cholesterol and Other additional plan/int 30-day Reassessments:: Progressing Reassessment Notes & Comments:: Pt encouraged to do his routine blood draws. Pt understands the importance Diabetes (Other Core Measures) Diabetes Type: Not Applicable Weight Mgt (Other Care) Height: 6 ft 1 in Weight:: 226 lb BMI: 29.8 Diagnosis Overweight/Obesity BMI> 30% ICD-10 E66: No Diagnosis High BMI/Morbid Obesity BMI> 35% ICD-10 Z68: No Outcomes/Goals: Pt sets, maintains & shows weight loss goal & trend during rehab and Other additional outcomes/goals Intervention/Plan: Instruct on ideal BMI & set weight loss goal w/patient, Assist pt to ID & incorporate diet changes for weight loss by S9, Refer to Structured Weight Loss program as appropriate, Encourage goal of using 250- 300dcal per session for weight loss and Other additional plan/interventions 30 day Reassessments:: Met Reassessment Notes & Comments:: Pt is at a healthy weight Healthy Eating Habits Will attend diet classes:: Yes Outcomes/Goals:: Consume diet rich in vegs,fruits,whole grain/high fiber,fish,lean meat, Limit sat/trans fats,cholesterol & added salts & sugars and Other additional outcome/goals: Intervention/Plan:: Assess current eating habits and Other Additional plan/interventions 30-day Reassessments:: Met Reassessment Notes & Comments:: Pt has attended nutrition class and understands the importance of a heart healthy diet Education Gave educational materials for:: Signs & symptoms of hypoglycemia, Signs & symptoms of hyperglycemia, Relate diabetes to coronary artery disease and Healthy eating Core - Final Assessment Hypertension Resting Blood Pressure:: 124/70 [place] [employer] Hypertension Guidelines Core - 60-Day Assessment Visit Date of Eval: 07/04/24 Session #:: 13 Medication Compliance Preventative Medication(s):: Aspirin, Clopidogrel/P2Y12 inhibit, Statin/lipid and Beta zana H/O mental health issues: depression, anxiety, or addiction?: No Doesn?t believe in the benefits of treatment?: No Believes medications are unnecessary or harmful?: No Has a concern about medication side effects?: No Expresses concern over the cost of medications?: No Outcomes/Goals: Verbalizes medications,desired effect & common side effects @ DC, Pt self-reports following medication regimen, Keeps card in wallet w/medications listed by DC and Other additional outcome/goals: Interventions/plans: Instruct on medication effects & side effects, Review medication list w/patient every two weeks, Instruct importance of taking meds as ordered & assist problem solving and Other additional 30-day Reassessments:: Met Reassessment Notes & Comments:: Pt taking meds as prescribed at this time. Will continue to monitor. Tobacco Use Tobacco Use: Non-smoker Hypertension Resting Blood Pressure:: 128/80 Resting Blood Pressure:: 124/70 [place] [employer] Hypertension Guidelines Peak Exercise Blood Pressure:: 180/98 Outcomes/Goals: Able to verbalize/achieve optimal blood pressure <130/80, Incorporates diet changes & exercise for blood pressure control by DC and Other additional outcomes/goals Interventions/plan: Instruct on optimal blood pressure, hypertension & medications, Instruct on effects of sodium, alcohol, stress, exercise &hypertension and Other additional plan/interventions 30 day Reassessments:: Progressing Reassessment Notes & Comments:: Pt's BP's are still slightly elevated. Benefits of a low sodium diet explained Tobacco Cessation Referral Smoking Cessation Referral:: No Individual Education/Counseling:: No Education Schedule Given:: Yes Psychosocial - 30-Day Assess Target Goals Target Goals Referral to Behavioral Health PS - Interventions: Yes: Attend Stress Management Classes Outcomes/Goals: See list Psychosocial Outcomes/Goals:: ID's personal stressors & 2 strategies to manage stress by discharge and Other Additional outcome/goals: Psychosocial - 60-Day Assess VIsit Date of Eval: 07/04/24 Session #:: 13 History of previous Mental disease:: No Target Goals Target Goals Psychosocial Test Tool Used:: [employer] Server Density QOL Cardiac and PHQ-9 Questionnaire phq-9 Severity Referral to Behavioral Health PS - Interventions: Yes: Attend Stress Management Classes Outcomes/Goals: See list Psychosocial Outcomes/Goals:: ID's personal stressors & 2 strategies to manage stress by discharge and Other Additional outcome/goals: Intervention/Plan: See List Interventions/Plan:: Assess stressors,coping strategies & signs of derpression on admission, Instruct/assist pt to develop coping & personal stress Mgt strategies, Refer to Behavioral Health if appropriate, Refer to Physician if appropriate, Instruct patient to recognize signs & symptoms of depression, Instruct patient to recog and Other additional plan/intervention 30-day Reassessments: 30 day Reassessments:: Met Reassessment Notes & Comments:: Pt denies any psychosocial issues at this time. Will continue to monitor. Psychosocial - 90-Day Assess Target Goals Target Goals Referral to Behavioral Health PS - Interventions: Yes: Attend Stress Management Classes Psychosocial - Final Assessmen Target Goals Target Goals Referral to Behavioral Health PS - Interventions: Yes: Attend Stress Management Classes Nutrition - 90-Day Assessment Weight Mgt (Other Care) Height: 6 ft 1 in Weight:: 226 lb BMI: 29.8 Nutrition - Final Assessment Weight Mgt (Other Care) Height: 6 ft 1 in Weight:: 226 lb BMI: 29.8
[2024-07-04 10:09] VITALS: BP 128/80; BMI 29.8
[2024-07-04 10:16] VITALS: BP 124/70; BP 128/80
== END 2024-07-08 23:59 ==
LOC: CR 11:15
PROVIDERS: PCP Internal Medicine
DX: Z95.5 Presence of coronary angioplasty implant and graft (principal)
CPT/HCPCS: 93798

== ENCOUNTER 2024-08-04 11:30 | Outpatient (RCR) | payer OTHER, SELFPAY ==
[2024-07-09 00:51] VITALS: BP 122/82; BP 124/70; BP 128/80
--- NOTE | 2024-08-01 07:22 | CR.ITP_ITS ---
Exercise - Initial Assessment Physician Prescribed Exercise Modalities: Treadmill, Schwinn Airdyne AD-7 and SciFit Stepper Nutrition - Initial Assessment Weight Mgt (Other Care) Height: 6 ft 1 in Weight:: 226 lb BMI: 29.8 Psychosocial - Initial Assess Target Goals Target Goals Referral to Behavioral Health PS - Interventions: Yes: Attend Stress Management Classes Patient Health Questionnaire PHQ-9 Screening 90-Day Re-eval Assessment: 1. Little interest or pleasure in doing things: Not at all 2. Feeling down, depressed, or hopeless: Not at all 3. Trouble falling or staying asleep, or sleeping too much: Not at all 4. Feeling tired or having little energy: Not at all 5. Poor appetite or overeating: Not at all 6. Feeling bad about yourself -- or that you are a failure or have let yourself or your family down: Not at all 7. Trouble concentrating on things, such as reading the newspaper or watching television: Not at all 8. Moving or speaking so slowly that other people could have noticed. Or the opposite - being so fidgety or restless that you have been moving around a lot more than usual: Not at all 9. Thoughts that you would be better off , or of hurting yourself in some way: Not at all How difficult have these problems made it for you to do your work, take care of things at home, or get along with other people?: Not difficult at all Total Score: 0 Self-Efficacy 6-Item Scale 90-Day Re-eval Assessment: We would like to know how confident you are in doing certain activities. Please select your confidence level for: Fatigue Select Number: 10 Physical Discomfort or Pain Select Number: 10 Emotional Distress Select Number: 10 Other Symptoms or Health Problems Select Number: 10 Different Tasks and Activities Select Number: 10 Medication Select Number: 10 Total Score:: 10 Nutrition Survey Nutrition Survey Instructions Scoring Instructions Exercise - 30-day Assessment Physician Prescribed Exercise Modalities: Treadmill, Schwinn Airdyne AD-7 and SciFit Stepper Exercise - 60-day Assessment Physician Prescribed Exercise Modalities: Treadmill, Schwinn Airdyne AD-7 and SciFit Stepper Exercise - 90-day Assessment Visit Date of Eval: 08/01/24 Session #:: 17 (Pt has not attended cardiac rehab since 06/26/24 due to back pain.) Physician Prescribed Exercise Modalities: Treadmill, Schwinn Airdyne AD-7 and SciFit Stepper Frequency: 3x/week for 12 weeks [36 sessions] Intensity: 60-80% of age predicted maximum heart rate reserve Duration: 30 - 45 minutes Current METSs:: 6.8 Target Heart Rate:: 97-138 Current RPE:: 13 Maximum Excercise HR:: 133 Resting Blood Pressure: 128/80 Maximum Exercise Blood Pressure: 180/98 EKG Type: NSR to ST with rare PVC Outcomes & Goals Goals:: Verbalizes understanding of THR, RPE & goal METS by session 6, Documents in home exercise log/reports 30 min aerobic 5 day/wk by DC, Demonstrates accurate pulse taking by DC and Other additional outcome/goals: see below Intervention & Plan Exercise Program Goals: Instruct on personal THR & RPE, Instruct on MET level & personal MET goal, Show patient to take own pulse /validate performance until accurate, Instruct on home exercise and Other additional plan/int Physical Activity Home Exercise Physical Activity - Home Exercise: Safe Exercise, Warm-up, Self-monitoring, Cool-Down, Home Exercise > 30 min Daily and Sitting Time <3 hours/daily Outcomes & Goals Outcomes/Goals: Demonstrates correct Warm-up/exercise Cool-Down (S3) if = 2.5 METs, Verbalizes symptoms of exercise intolerance by Session 3 (S3), Demonstrate safe equipment use (S3) & follows exercise prescrition (6) and Other: See below Intervention & Plan Plan/Intervention: Instruct warm-up & cool-down if exercising at > 2 METs, Instruct on symptoms of exercise intolerance & actions to take, Instruct & monitor on saf, Assess intial functional capacity & safety risk and Other See below 30-day Reassessments 30 day Reassessments:: Progressing Reassessment Notes & Comments:: Pt has not attended cardiac rehab since 06/26/24 due to back pain. Exercise - Final/Discharge Physician Prescribed Exercise Modalities: Treadmill, Schwinn Airdyne AD-7 and SciFit Stepper Nutrition - 30-Day Assessment Weight Mgt (Other Care) Height: 6 ft 1 in Weight:: 226 lb BMI: 29.8 Nutrition - 60-Day Assessment Weight Mgt (Other Care) Height: 6 ft 1 in Weight:: 226 lb BMI: 29.8 Core - 30-Day Assessment Hypertension [place] [employer] Hypertension Guidelines Reassessment Notes & Comments:: Pt has not attended cardiac rehab since 06/26/24 due to back pain. Core - Final Assessment Hypertension [place] [employer] Hypertension Guidelines Reassessment Notes & Comments:: Pt has not attended cardiac rehab since 06/26/24 due to back pain. Core - 90 Day Assessment Visit Date of Eval: 08/01/24 Session #:: 17 (Pt has not attended cardiac rehab since 06/26/24 due to back pain.) Medication Compliance Preventative Medication(s):: Aspirin, Clopidogrel/P2Y12 inhibit, Statin/lipid and Beta zana H/O mental health issues: depression, anxiety, or addiction?: No Doesn?t believe in the benefits of treatment?: No Believes medications are unnecessary or harmful?: No Has a concern about medication side effects?: No Expresses concern over the cost of medications?: No Outcomes/Goals: Verbalizes medications,desired effect & common side effects @ DC, Pt self-reports following medication regimen, Keeps card in wallet w/medications listed by DC and Other additional outcome/goals: Interventions/plans: Instruct on medication effects & side effects, Review medication list w/patient every two weeks, Instruct importance of taking meds as ordered & assist problem solving and Other additional Tobacco Use Tobacco Use: Non-smoker Hypertension Resting Blood Pressure:: 128/80 [place] [employer] Hypertension Guidelines Peak Exercise Blood Pressure:: 180/98 Outcomes/Goals: Able to verbalize/achieve optimal blood pressure <130/80, Incorporates diet changes & exercise for blood pressure control by DC and Other additional outcomes/goals Interventions/plan: Instruct on optimal blood pressure, hypertension & medications, Instruct on effects of sodium, alcohol, stress, exercise &hypertension and Other additional plan/interventions 30 day Reassessments:: Progressing Reassessment Notes & Comments:: Pt has not attended cardiac rehab since 06/26/24 due to back pain. Tobacco Cessation Referral Smoking Cessation Referral:: No Individual Education/Counseling:: No Education Schedule Given:: Yes Psychosocial - 30-Day Assess Target Goals Target Goals Referral to Behavioral Health PS - Interventions: Yes: Attend Stress Management Classes Psychosocial - 60-Day Assess Target Goals Target Goals Referral to Behavioral Health PS - Interventions: Yes: Attend Stress Management Classes Psychosocial - 90-Day Assess VIsit Date of Eval: 08/01/24 Session #:: 17 (Pt has not attended cardiac rehab since 06/26/24 due to back pain.) History of previous Mental disease:: No Target Goals Target Goals Referral to Behavioral Health PS - Interventions: Yes: Attend Stress Management Classes Outcomes/Goals: See list Psychosocial Outcomes/Goals:: ID's personal stressors & 2 strategies to manage stress by discharge and Other Additional outcome/goals: Intervention/Plan: See List Interventions/Plan:: Assess stressors,coping strategies & signs of derpression on admission, Instruct/assist pt to develop coping & personal stress Mgt strategies, Refer to Behavioral Health if appropriate, Refer to Physician if appropriate, Instruct patient to recognize signs & symptoms of depression, Instruct patient to recog and Other additional plan/intervention 30-day Reassessments: 30 day Reassessments:: Progressing Reassessment Notes & Comments:: Pt has not attended cardiac rehab since 06/26/24 due to back pain. Psychosocial - Final Assessmen Target Goals Target Goals Referral to Behavioral Health PS - Interventions: Yes: Attend Stress Management Classes Nutrition - 90-Day Assessment Program Goals Nutrition Program Goals Patient has diagnosis of Hyperlipidemia (ICD E78)?: Yes Visit Date of Eval: 08/01/24 Session #:: 17 (Pt has not attended cardiac rehab since 06/26/24 due to back pain.) Cholesterol/Lipids (Other Core Measures) Determine presence & major risk factors that modify LDL goal: Hypertension or hypertensive medication, Low HDL cholesterol <40 mg/dL*, Family history of premature CHD in Male < 55 years: female <65 yearsFa and Age men > 45 years; women >/= 55 years Outcomes/Goals: Pt IDs own risk factors & lifestyle modifications by Session 10, Verbalizes symptoms of angina & response by session 3., Pt independently manages and Other Additional Outcomes/Goals: Intervention/Plan: Advocate for lipid panel cholesterol medication if applicable, Instruct on personal lipid levels & lipid goals/NCEP guidelines, Instruct on cholesterol and Other additional plan/int Diabetes (Other Core Measures) Diabetes Type: Not Applicable Weight Mgt (Other Care) Height: 6 ft 1 in Weight:: 226 lb BMI: 29.8 Diagnosis Overweight/Obesity BMI> 30% ICD-10 E66: No Diagnosis High BMI/Morbid Obesity BMI> 35% ICD-10 Z68: No Outcomes/Goals: Pt sets, maintains & shows weight loss goal & trend during rehab and Other additional outcomes/goals Intervention/Plan: Instruct on ideal BMI & set weight loss goal w/patient, Assist pt to ID & incorporate diet changes for weight loss by S9, Refer to S tructured Weight Loss program as appropriate, Encourage goal of using 250- 300dcal per session for weight loss and Other additional plan/interventions Healthy Eating Habits Will attend diet classes:: Yes Outcomes/Goals:: Consume diet rich in vegs,fruits,whole grain/high fiber,fish,lean meat, Limit sat/trans fats,cholesterol & added salts & sugars and Other additional outcome/goals: Intervention/Plan:: Assess current eating habits and Other Additional plan/interventions 30-day Reassessments:: Progressing Reassessment Notes & Comments:: Pt has not attended cardiac rehab since 06/26/24 due to back pain. Education Gave educational materials for:: Signs & symptoms of hypoglycemia, Signs & symptoms of hyperglycemia, Relate diabetes to coronary artery disease and Healthy eating Nutrition - Final Assessment Weight Mgt (Other Care) Height: 6 ft 1 in Weight:: 226 lb BMI: 29.8
[2024-08-01 07:30] VITALS: BP 128/80; BMI 29.8
== END 2024-08-08 23:59 ==
LOC: CR 11:30
PROVIDERS: PCP Internal Medicine
DX: Z95.5 Presence of coronary angioplasty implant and graft (principal)
CPT/HCPCS: 93798

== ENCOUNTER 2024-08-11 07:08 | Outpatient (RCR) | payer OTHER, SELFPAY ==
[2024-08-01 07:30] VITALS: BMI 29.8
[2024-08-09 00:26] VITALS: BP 122/82; BP 124/70; BP 128/80
== END 2024-09-08 23:59 ==
LOC: CR 07:08
PROVIDERS: PCP Internal Medicine
DX: Z95.5 Presence of coronary angioplasty implant and graft (principal)